=== PATIENT | female | born 1960 | race Caucasian/White ===

== ENCOUNTER → 2018-12-09 | Outpatient (CLI) | payer BC ==
[~2018-12-09] MED LIST: FISH OIL 1,001000 M2; MULTIVITAMINS1 EAC7 PO; VITAMIN B-12500 MCG PO
== END ==
LOC: MRI 09:02
DX: D33.3 Benign neoplasm of cranial nerves (principal)

== ENCOUNTER → 2019-06-24 | Outpatient (CLI) | payer BC | LOC: MRI 11:01 | DX: R09.82 Postnasal drip (principal) ==

== ENCOUNTER → 2021-03-24 | Outpatient (CLI) | payer BC ==
[2021-03-24 11:09] LABS: CREATININE 0.6 mg/dL (0.6-1.0)
== END ==
LOC: MRI 10:10
DX: R90.82 White matter disease, unspecified (principal); M62.89 Other specified disorders of muscle; R94.02 Abnormal brain scan; G93.89 Other specified disorders of brain; H53.2 Diplopia; Z98.890 Other specified postprocedural states